=== PATIENT | male | born 1985 | race Caucasian/White ===

== ENCOUNTER 2020-12-15 21:49 | Inpatient (IN) | payer SELFPAY ==
[2020-12-15 21:50] VITALS: BP 127/90; PULSE 95; RESP 18; TEMP 36.7; O2SAT 98; BMI 39.7
--- NOTE | 2020-12-15 21:51 | ECG_ITS ---
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 Measurements Intervals [place] Rate: 80 P: 42 CO: 174 QRS: 12 QRSD: 91 T: 34 QT: 352 QTc: 406 Interpretive Statements SINUS RHYTHM MINIMAL VOLTAGE CRITERIA FOR LVH, CONSIDER NORMAL VARIANT [MEETS CRITERIA IN ONE OF: R(aVL), S(V1), R(V5), R(V5/V6)+S(V1)] No previous ECG available for comparison Electronically Signed On 12-16-2020 12:40:25 FAST FOOD SHIFT SUPERVISOR by Beth Gresham M.D. [id number]
[2020-12-15 22:26] LABS: Add Urine Microscopic? NO
[2020-12-15 22:26] LABS: Basophils % 0.4 %; Eosinophils # 0.3 10^3/uL (0.0-0.8); Eosinophils % 3.3 %; Hematocrit 50.1 % (42.0-52.0); Lymphocytes # 2.2 10^3/uL (0.8-4.8); Lymphocytes % 23.1 %; Mean Corpuscular HGB Conc 33.9 g/dL (30.0-36.0); Mean Corpuscular Hemoglobin 31.5 pg (28.0-34.0); Mean Corpuscular Volume 92.8 fL (80-94); Mean Platelet Volume 10.6 fL (7.4-10.4); Monocytes # 0.5 10^3/uL (0.2-0.9); Monocytes % 4.9 %; Neutrophils # 6.46 10^3/uL (1.8-7.7); Neutrophils % 68.1 %; Nucleated Red Blood Cells % 0 %; Platelet Count 221 10^3/cmm (130-400); Red Cell Distribution Width 12.2 % (12.1-15.1); White Blood Count 9.5 10^3/uL (4.0-10.0)
[2020-12-15 22:35] LABS: Urine Appearance Clear (CLEAR); Urine Color Yellow (Yellow); pH Urine 5 (5-7)
[2020-12-15 22:36] LABS: Bilirubin Urine Neg (Negative); Blood Urine Neg (Negative); Glucose Urine UA 4+ (Normal); Ketones Urine 1+ (Negative); Leukocyte Esterase Urine Negative (Negative); Nitrate Urine Negative (Negative); Protein Urine Neg (Negative); Specific Gravity, Urine 1.025 (1.005-1.030); Urobilinogen Urine 1 mg/dL (Negative)
[2020-12-15 22:39] LABS: Amphetamines Screen Urine Negative (Negative); Barbiturates Screen Urine Negative (Negative); Benzodiazepines Screen Urine Negative (Negative); Cocaine Screen Urine Negative (Negative); Opiate Screen Urine Negative (Negative); PCP Screen Urine Negative (Negative); THC Screen Urine Negative (Negative)
[2020-12-15 22:54] LABS: Alanine Aminotransferase 107 U/L (0-41); Albumin Level 4.6 g/dL (3.5-5.2); Alkaline Phosphatase 120 IU/L (40-130); Anion Gap 13.9 (5-19); Aspartate Amino Transferase 53 U/L (0-40); Blood Urea Nitrogen 10 mg/dL (6-20); Calcium 9.2 mg/dL (8.5-10.5); Carbon Dioxide 27 mmol/L (22-29); Chloride 98 mmol/L (98-107); Globulin 3.9 g/dL (1.3-4.6); Glucose 279 mg/dL (65-115); Osmolality Calculated 289 mOsm/kg (285-295); Potassium 3.9 mmol/L (3.5-5.1); Sodium 135 mmol/L (136-145); Thyroid Stimulating Hormone 1.04 uIU/mL (0.27-4.20); Total Bilirubin 0.8 mg/dL (0.15-1.2); Total Protein 8.5 g/dL (6.6-8.7)
[2020-12-15 23:06] LABS: Acetaminophen < 5.0 ug/mL (10-30); Salicylate < 0.3 mg/dL (3-10)
[2020-12-15 23:07] LABS: Alcohol Level < 10 mg/dL (0-10)
--- NOTE | 2020-12-15 23:13 | ED_ITS ---
HPI - Psych General: Chief Complaint: Psychiatric Symptoms Stated Complaint: SI Time Seen by Provider: 12/15/20 21:50 History of Present Illness: HPI Narrative: Patient comes to the ER after a suicide attempt where he says he was trying to kill himself. 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 It is very superficial and does not require repair. No history of depression. He says his just told him that she wants a divorce and he is upset about it. MD complaint: suicidal ideation and feels depressed Associated symptoms: Deny depression Review of Systems General: Reports: 10 or more systems reviewed and unremarkable except in HPI and below Const: Denies: fatigue Eyes: Denies: change in vision, blurry vision or eye redness ENMT: Denies: throat pain, swelling of lips/tongue, ear or mastoid pain or nasal congestion Card: Denies: chest pain, palpitations, irregular heart rhythm, edema, dyspnea on exertion or orthopnea Resp: Denies: dyspnea, productive cough or non-productive cough GI: Denies: abdominal pain, diarrhea or GI cramping : Denies: flank pain, urinary frequency or urinary urgency Musc: Denies: neck pain, back pain, extremity pain, joint pain, joint redness, limited range of motion or muscle weakness Skin/Breast: Reports: other (Laceration); Denies: rash, pruritus, erythema, skin pain or skin tenderness Neuro: Denies: headache(s), numbness in extremities, weakness in extremities, sensory changes, difficulty walking, dizziness, confusion or Slurred speech present Psych: Denies: anxiety or depression Endo: Denies: polyuria All/Imm: Denies: urticaria, throat swelling or tongue swelling PFSH ED PFSH: Social History (Updated 04/11/20 @ 11:05 by Janna Bonilla LPN) Smoking and tobacco status: never smoked Physical Exam Const: COMMON NORMALS: no acute distress, average body habitus, patient oriented x3, no limitations, healthy appearing, alert and well nourished GENERAL APPEARANCE: cooperative, comfortable, well kempt and well developed ORIENTATION/CONSCIOUSNESS: Yes awake, Yes oriented to person, Yes oriented to place and Yes oriented to time HENMT: COMMON NORMALS: normocephalic, external ears normal and Normal external nose present HEAD & SCALP: normal to inspection and normocephalic NOSE: Normal external nose present EXTERNAL EAR: Yes external ears normal MOUTH: Normal oral and palatal mucosa present THROAT: posterior oropharynx normal Eye: COMMON NORMALS: Equal, round and reactive pupils present and EOMs intact bilaterally GENERAL EYE: appearance normal, both eyes and all related structures PUPIL: Yes Equal, round and reactive pupils present Neck/C-Spine: COMMON NORMALS: full ROM, no lymphadenopathy, no meningeal signs and no JVD GENERAL: Yes normal visual inspection Lymph: LYMPHATIC: no lymphadenopathy noted Chest: COMMONS NORMALS: normal inspection of the chest and normal palpation of entire chest wall Resp: COMMON NORMALS: normal respiratory effort, No retractions, No use of accessory muscles, clear to auscultation bilaterally and percussion normal EFFORT & INSPECTION: Yes able to speak in complete sentences AUSCULTATION: clear to auscultation bilaterally PERCUSSION: percussion normal Cardio: COMMON NORMALS: no JVD, regular rate, regular rhythm, S1 normal heart sound present, S2 normal heart sound present and Peripheral pulses 2+ throughout RATE: regular rate RHYTHM: regular rhythm HEART SOUNDS: S1 normal heart sound present and S2 normal heart sound present PERIPHERAL PULSES: Peripheral pulses 2+ throughout GI: COMMON NORMALS: Normal to inspection, nondistended, normoactive bowel sounds present, Soft to palpation, non-tender and no masses INSPECTION: Yes normal to inspection PALPATION: Yes Soft to palpation : COMMON NORMALS: Yes no CVA tenderness BLADDER/KIDNEY EXAM: Yes no CVA tenderness Back/Pelvis: COMMON NORMALS: no CVA tenderness, thoracic and lumbar spine normal to inspection, no thoracic nor lumbar tenderness and thoraco-lumbar ROM normal Extremity: COMMON NORMALS: normal to inspection, full ROM, capillary refill normal, no joint enlargement and no pedal edema GENERAL: Yes normal exam except as noted Neuro: COMMON NORMALS: patient oriented x3, CN's II-XII intact bilaterally, moves all extremities, no focal motor deficits, no sensory deficits noted and gait normal SENSORIUM/ORIENTATION: Yes alert, Yes oriented to person, Yes oriented to place and Yes oriented to time MENINGEAL SIGNS: Yes no meningeal signs Psych: COMMON NORMALS: mental status grossly normal, Normal thought process present, cooperative, normal affect and speech normal APPEARANCE: Yes well kempt ATTITUDE: Yes calm SPEECH: Yes normal speech THOUGHT PROCESS: Normal thought process present Skin: COMMON NORMALS: no rashes or lesions noted NARRATIVE SKIN EXAM: Normal except very superficial laceration to left forearm several centimeters long and linear with the length of the arm. Does not separate and does not require repair. GENERAL SKIN EXAM: no rashes or lesions noted MDM - Psych MDM Narrative: Medical decision making narrative: Updated tetanus. Discussed with Dr. Thacker who accepts for admission Lab Data: Labs: Lab Results 12/15/20 12/15/20 12/15/20 Range/Units 22:13 22:13 22:16 WBC 9.5 (4.0-10.0) 10^3/ uL RBC 5.40 H (4.1-5.3) 10^6/u L Hgb 17.0 H (11.7-16.6) g/dL Hct 50.1 (42.0-52.0) % MCV 92.8 (80-94) fL MCH 31.5 (28.0-34.0) pg MCHC 33.9 (30.0-36.0) g/dL RDW 12.2 (12.1-15.1) % Plt Count 221 (130-400) 10^3/c mm MPV 10.6 H (7.4-10.4) fL Neut % (Auto) 68.1 % Lymph % (Auto) 23.1 % [place] % (Auto) 4.9 % Eos % (Auto) 3.3 % Baso % (Auto) 0.4 % Neut # (Auto) 6.46 (1.8-7.7) 10^3/u L Lymph # (Auto) 2.2 (0.8-4.8) 10^3/u L [place] # (Auto) 0.5 (0.2-0.9) 10^3/u L Eos # (Auto) 0.3 (0.0-0.8) 10^3/u L Baso # (Auto) 0.0 (0.0-0.1) 10^3/u L Nucleated RBC % (a uto) 0 % Nucleated RBCs # 0.0 /100WBC Sodium (136-145) mmol/L Potassium (3.5-5.1) mmol/L Chloride (98-107) mmol/L Carbon Dioxide (22-29) mmol/L Anion Gap (5-19) BUN (6-20) mg/dL Creatinine (0.7-1.2) mg/dL GFR Calculation (90-130) mL/min Glucose (65-115) mg/dL Calculated Osmolal ity (285-295) mOsm/k g Calcium (8.5-10.5) mg/dL Total Bilirubin (0.15-1.2) mg/dL AST (0-40) U/L ALT (0-41) U/L Alkaline Phosphata se (40-130) IU/L Total Protein (6.6-8.7) g/dL Albumin (3.5-5.2) g/dL Globulin (1.3-4.6) g/dL TSH (0.27-4.20) uIU/ mL Urine Color Yellow (Yellow) Urine Appearance Clear (CLEAR) Urine pH 5 (5-7) Ur Specific Gravit y 1.025 (1.005-1.030) Urine Protein Neg (Negative) Urine Glucose (UA) 4+ H (Normal) Urine Ketones 1+ H (Negative) Urine Blood Neg (Negative) Urine Nitrate Negative (Negative) Urine Bilirubin Neg (Negative) Urine Urobilinogen 1 H (Negative) mg/dL Ur Leukocyte Sherice ase Negative (Negative) Salicylates (3-10) mg/dL Urine Opiates Scre en Negative (Negative) ng/mL Acetaminophen (10-30) ug/mL Ur Barbiturates Sc reen Negative (Negative) ng/mL Ur Phencyclidine S crn Negative (Negative) ng/mL Ur Amphetamines Sc reen Negative (Negative) ng/mL U Benzodiazepines Scrn Negative (Negative) ng/mL Urine Cocaine Scre en Negative (Negative) ng/mL U Marijuana (THC) Screen Negative (Negative) ng/mL Ethyl Alcohol (0-10) mg/dL 12/15/20 Range/Units 22:16 WBC (4.0-10.0) 10^3/ uL RBC (4.1-5.3) 10^6/u L Hgb (11.7-16.6) g/dL Hct (42.0-52.0) % MCV (80-94) fL MCH (28.0-34.0) pg MCHC (30.0-36.0) g/dL RDW (12.1-15.1) % Plt Count (130-400) 10^3/c mm MPV (7.4-10.4) fL Neut % (Auto) % Lymph % (Auto) % [place] % (Auto) % Eos % (Auto) % Baso % (Auto) % Neut # (Auto) (1.8-7.7) 10^3/u L Lymph # (Auto) (0.8-4.8) 10^3/u L [place] # (Auto) (0.2-0.9) 10^3/u L Eos # (Auto) (0.0-0.8) 10^3/u L Baso # (Auto) (0.0-0.1) 10^3/u L Nucleated RBC % (a uto) % Nucleated RBCs # /100WBC Sodium 135 L (136-145) mmol/L Potassium 3.9 (3.5-5.1) mmol/L Chloride 98 (98-107) mmol/L Carbon Dioxide 27 (22-29) mmol/L Anion Gap 13.9 (5-19) BUN 10 (6-20) mg/dL Creatinine 0.8 (0.7-1.2) mg/dL GFR Calculation 110.0 (90-130) mL/min Glucose 279 H (65-115) mg/dL Calculated Osmolal ity 289 (285-295) mOsm/k g Calcium 9.2 (8.5-10.5) mg/dL Total Bilirubin 0.8 (0.15-1.2) mg/dL AST 53 H (0-40) U/L ALT 107 H (0-41) U/L Alkaline Phosphata se 120 (40-130) IU/L Total Protein 8.5 (6.6-8.7) g/dL Albumin 4.6 (3.5-5.2) g/dL Globulin 3.9 (1.3-4.6) g/dL TSH 1.04 (0.27-4.20) uIU/ mL Urine Color (Yellow) Urine Appearance (CLEAR) Urine pH (5-7) Ur Specific Gravit y (1.005-1.030) Urine Protein (Negative) Urine Glucose (UA) (Normal) Urine Ketones (Negative) Urine Blood (Negative) Urine Nitrate (Negative) Urine Bilirubin (Negative) Urine Urobilinogen (Negative) mg/dL Ur Leukocyte Sherice ase (Negative) Salicylates < 0.3 L (3-10) mg/dL Urine Opiates Scre en (Negative) ng/mL Acetaminophen < 5.0 L (10-30) ug/mL Ur Barbiturates Sc reen (Negative) ng/mL Ur Phencyclidine S crn (Negative) ng/mL Ur Amphetamines Sc reen (Negative) ng/mL U Benzodiazepines Scrn (Negative) ng/mL Urine Cocaine Scre en (Negative) ng/mL U Marijuana (THC) Screen (Negative) ng/mL Ethyl Alcohol < 10 (0-10) mg/dL Discharge Plan Discharge Patient Disposition: Admitted As Inpatient Clinical Impression: Depression Condition: Stable Coding Level of Care Code ED Drop Hammer Mechanic for Juanita Juares
[2020-12-16] VITALS (9 sets, daily range): BP systolic 110–129; BP diastolic 73–88; PULSE 68–87; RESP 15–20; TEMP 36.4–37.3; O2SAT 95–98
[2020-12-16 00:25] LABS: Hepatitis A Antibody IgM Non-Reactive (Nonreactive); Hepatitis B Core IgM Non-Reactive (Nonreactive); Hepatitis B Surface Antigen Non-Reactive (Nonreactive); Hepatitis C Virus Antibody Non-Reactive (Nonreactive)
--- NOTE | 2020-12-16 13:32 | P.HP_ITS ---
Providers/Chief Complaint Admitting Physician: Arcelia Thacker DO Primary Care Provider: CARMEN Reed Chief Complaint: SI HPI NPU History of Present Illness Praveen Boykin is a 35 year old male with no past psychiatric history presented to the emergency department superficial laceration to his left forearm in the context of his telling him that she wanted to divorce. Emergency department episode of care yielded unremarkable work-up and states that patient reported intent of ending his life with his superficial laceration that did not require any repair although patient currently states that he had no intent of ending his life when he created the superficial laceration to his left forearm when he became upset. Patient denies any sustained low mood states her depressive symptoms prior to this acute stressor. Patient denies any past his tory of major depressive episodes or any sustained mood states or past treatment for depressive symptoms. Patient denies any history of suicide attempts or self-harm behavior. Patient does report having an issue with anger stating that he has a low threshold for frustration tolerance but denies any past or recent episodes of harming any other individuals and denies any history of assaultive behavior. Patient was unable to report any recent reason for his wanting to leave him though he states that they occasionally get into verbal arguments but no physical altercations and denies any history of domestic violence. He denies any past or recent manic or hypomanic episodes. He denies any sustained excessive worry or difficulty controlling worrying and denies any past or recent episodes of panic symptoms. Psychiatric review of systems is otherwise negative. Patient denies any past treatment for psychiatric symptoms and denies any past history of counseling or therapy. Patient was living with his and reports having a support system locally stating that many of his family members live nearby and reports having a good support system. He reports currently being enrolled in [employer] with an anticipated graduation date of next fall. Review of Systems General: Reports: 10 or more systems reviewed and unremarkable except in HPI and below Meds NPU Home Medications Medication Instructions Recorded Confirmed Last Taken Type No Known Home Medications 04/11/20 12/16/20 Unknown History Allergies Allergy/AdvReac Type Severity Reaction Status Date / Time No Known Allergies Allergy Verified 04/11/20 10:59 PFSH NPU PFSH: Social History Smoking and tobacco status: never smoked Other Psychiatric History: Other Psychiatric History: Denies any past psychiatric treatment Denies any history of psychiatric hospitalization Denies any history of self-harm behavior or suicide attempts Mental Status Exam MSE Comments: Sitting up on his bed, bearded, dejected looking, appropriately groomed and dressed, calm, quiet, cooperative, good eye contact Psychomotor activity is decreased, no agitation Speech is low volume, normal rate, spontaneous, clear articulation, not pressured I feel depressed, congruent affect, constricted, not labile Alert and oriented to person, place, time, situation Memory and concentration appear to be intact per interview Intellectual functioning appears to be average based on the Keppra, interview Thought process, linear, no flight of ideas, no looseness of associations Thought content, no delusions, no hallucinations, no suicidal or homicidal ideation Insight and judgment appear to be intact Vitals/I&O/Wt Last Vital Signs Temp 99.2 F 12/16/20 06:00 Pulse 68 12/16/20 06:00 Resp 15 12/16/20 06:00 BP 115/74 12/16/20 06:00 Pulse Ox 97 12/16/20 06:00 Weight last 48 hrs Weight 129.274 kg Data NPU : 12/15/20 22:16 12/15/20 22:16 A&P Assessment and plan (1) Adjustment disorder with mixed disturbance of emotions and conduct: Status: Acute Additional A&P Information 35-year-old male with no past psychiatric history with superficial laceration of left forearm not requiring any repair as a suicidal gesture after his told him that she wanted to divorce. Patient denies any recent depressive symptoms prior to this event and continues to report depressive symptoms in the context of the acute stressor. Would likely benefit from observation for return of any suicidal ideation or behaviors while coordinating for safe discharge. VOLUNTARY ADMIT to inpatient psychiatry Will hold on starting any antidepressant while continuing to evaluate for any sustained depressive symptoms Supportive therapy Coordinate with aids social worker for post discharge counseling/therapy targeting development of adaptive coping strategies in the context of his ongoing acute stressor Involuntary Hold Information 96 Hour Hold: 96 Hour Involuntary Admission: No Attestations NPU Medical Necessity Statement*: Patient requires psychiatric hospitalization for observation given recent suicidal gesture for any ongoing suicidal ideation or behaviors as well as coordination for safe discharge Anticipate hospital stay to exceed 2 midnights Time Spent in Patient Care: Greater than 35 minutes (>than 50% of time spent in counselling and/or direct pt care on unit) . Coding Level of Care Code Acute Manager Of Employee Relations for Chg Fwd Diagnoses Adjustment disorder with mixed disturbance of emotions and conduct F43.25
[2020-12-16] MEDS: acetaminophen 325 mg Tablet 650 MG PO (20:38)
[2020-12-17 06:00] VITALS: BP 105/66; PULSE 72; RESP 18; TEMP 36.8; O2SAT 93
--- NOTE | 2020-12-17 09:48 | P.DS_ITS ---
Diagnoses at Discharge Discharge Diagnosis (1) Adjustment disorder with mixed disturbance of emotions and conduct: Status: Acute Reason for Visit Reason for Visit: SI Hospital Course Hospital Course 35 year old male with no past psychiatric history presented to the emergency department superficial laceration to his left forearm in the context of his telling him that she wanted to divorce. Patient superficial laceration did not require repair, patient states that he had never harmed himself before and had never attempted suicide and denied that this superficial laceration represented a suicide attempt. Patient reported that he was overcome with emotions after his had told him that she wanted a divorce. He denies any recent or current major depressive episodes and had never been treated for depressive symptoms previously and has no family history of depression or anxiety. Patient quickly reconstituted while on the unit and denied any suicidal ideation throughout his hospital stay. Patient communicated his understanding of the need to develop more adaptive coping strategies in the need to utilize resources provided by the social service technician for counseling/therapy. Patient was not suicidal at the time of discharge and did not appear to pose an imminent threat of harm to self or others. Low to moderate risk of harm to self or others given no current suicidal ideation and no current psychiatric symptoms although patient's risk may be elevated if he continues to exercise maladaptive coping strategies or uses alcohol or substances which may lead to unexpected, impulsive behavior. Risk mitigation included psychiatric hospitalization for observation for any ongoing suicidal ideation or suicidal behavior as well as assessing for the need of any psychiatric medication as well as coordinating for safe discharge to include providing resources for counseling/therapy. Patient was able to communicate his understanding of the need to utilize more adaptive coping strategies to include follow-up with a counselor/therapist in order to further mitigate his risk of harm to self and others. Involuntary Hold Information 96 Hour Hold: 96 Hour Involuntary Admission: No Mental Status Exam MSE Comments: Sitting in the day room, watching TV, calm, cooperative, good eye contact Psychomotor activity is neither increased nor decreased, no agitation Speech is normal volume, normal rate, spontaneous, clear articulation, not pressured I feel better, full range of affect, smiles appropriately at times during interview, not labile Alert and oriented to person, place, time, situation Memory and concentration appear to be intact per interview Intellectual functioning appears to be average based on his vocabulary, interview Thought process, linear, no flight of ideas, no looseness of associations Thought content, no delusions, no hallucinations, no suicidal or homicidal ideation Insight and judgment appear to be intact Discharge Data Vitals: Last Vital Signs Temp 98.3 F 12/17/20 06:00 Pulse 72 12/17/20 06:00 Resp 18 12/17/20 06:00 BP 105/66 12/17/20 06:00 Pulse Ox 93 12/17/20 06:00 Discharge Plan Discharge Patient Disposition: Home Condition: Stable Prescriptions: No Action No Known Home Medications RF: 0 Discharge Orders: Discharge Order (Routine); Ordered 12/17/20 Ordered By: Arcelia Thacker Referrals: [facility] [Outside] (Intake paperwork was completed while you were in the hospital. They will call and schedule you for an initial assessment.) Syed,CARMEN Frye [Primary Care Provider] - Discharge Diet: Regular Discharge Activity: Resume usual activity Discharge Attestations NPU Time Spent in Discharge Care*: greater than 30 min Status at Discharge: Cognitive status at discharge: cognitively intact , Behavioral status at discharge: cooperative , Functional status at discharge: independent ambulation Overall status at discharge: patient is back to baseline Coding Level of Care Code Acute Dance Professor for Chg Fwd Diagnoses Adjustment disorder with mixed disturbance of emotions and conduct F43.25
[2020-12-17 09:53] VITALS: BP 105/66; PULSE 72; RESP 18; TEMP 36.8; O2SAT 93
== END 2020-12-17 10:41 | disposition home or self-care (01) | DRG 882 ==
LOC: ER 23:15 → NP 12-16 00:07
PROVIDERS: Admitting Provider Psychiatry & Neurology Psychiatry; Emergency Provider Family Medicine; PCP Nurse Practitioner Family; Visit Provider Psychiatry & Neurology Psychiatry
DX: F43.25 Adjustment disorder with mixed disturbance of emotions and conduct (principal)
CPT/HCPCS: 80053; 80074; 80306; 80307; 81003; 84443; 85025; 93005; 99285

== ENCOUNTER 2023-03-19 11:08 | Outpatient (CLI) | payer OTHER, SELFPAY ==
--- NOTE | 2023-03-19 11:59 | XR_ITS ---
WS: [id number] Right knee, AP and lateral views, 03/19/2023 Clinical Data: RIGHT KNEE PAIN Comparison: None. Findings: No fractures or dislocations are seen. The joint spaces are normal. The patella is intact. The soft t issues are unremarkable. XR/XR knee RT 1-2V [id number] Impression: Negative right knee. Kellgren-Alexy Classification: grade 0 (none): definite absence of x-ray loren nges of osteoarthritis
== END 2023-03-19 11:09 | disposition home or self-care (01) ==
PROVIDERS: PCP Nurse Practitioner Family; Visit Provider Nurse Practitioner Family
DX: M25.561 Pain in right knee (principal)
CPT/HCPCS: 73560

== ENCOUNTER 2023-11-21 15:03 | Emergency (ER) | payer OTHER, SELFPAY ==
[2023-11-21 15:09] VITALS: BP 156/83; PULSE 89; RESP 16; TEMP 36.6; O2SAT 99; BMI 34.5
[2023-11-21 15:23] LABS: Glucose Point of Care 468 mg/dL (70-110)
--- NOTE | 2023-11-21 15:25 | ED_ITS ---
HPI - Recheck/Abnormal Lab/Rx 2 General: Chief Complaint: Recheck/Abnormal Lab/Rx Stated Complaint: sent over by dr high blood sugar Time Seen by Provider: 11/21/23 15:23 History of Present Illness: 38-year-old male patient comes in today after having a elevated blood glucose at urgent care. Patient was being seen for a recurrent balanitis. Patient appears nontoxic. On exam it was noted that patient's blood glucose was greater than 400. Dr. Melgoza recommended patient come to the ER for further evaluation and treatment. Patient appears nontoxic. Patient has reported some weight loss over the last year. Patient appears in no pain. Review of Systems 2 General: Reports: 10 or more systems reviewed and unremarkable except in HPI and below Const: Denies: fever(s) Card: Denies: chest pain Resp: Denies: dyspnea GI: Denies: nausea, vomiting, diarrhea or constipation : Denies: difficulty urinating Musc: Denies: neck pain or back pain Skin/Breast: Reports: rash PFSH ED 2 PFSH: Family History Father Hypertension Mother No problems noted. Social History Smoking and tobacco/nicotine status: never used tobacco/nicotine Physical Exam 2 Const: COMMON NORMALS: alert HENMT: COMMON NORMALS: normocephalic HEAD & SCALP: normocephalic Neck/C-Spine: COMMON NORMALS: full ROM Resp: COMMON NORMALS: normal respiratory effort and clear to auscultation bilaterally AUSCULTATION: clear to auscultation bilaterally Cardio: COMMON NORMALS: regular rate and regular rhythm RATE: regular rate RHYTHM: regular rhythm GI: COMMON NORMALS: Soft to palpation and non-tender PALPATION: Yes Soft to palpation Back/Pelvis: COMMON NORMALS: thoracic and lumbar spine normal to inspection Extremity: COMMON NORMALS: normal to inspection Neuro: SENSORIUM/ORIENTATION: Yes alert Skin: COMMON NORMALS: turgor normal GENERAL SKIN EXAM: turgor normal Course 2 Vital Signs: Vital signs: Vital Signs Temperature 97.8 F 11/21/23 15:09 Pulse Rate 87 11/21/23 16:22 Respiratory Rate 15 11/21/23 16:22 Blood Pressure 153/86 11/21/23 16:22 Pulse Oximetry 100 11/21/23 16:22 Oxygen Delivery Me thod Room Air 11/21/23 16:22 MDM - Recheck/Abnormal Lab/Rx Medical Decision Making 38-year-old male patient comes in today for complaints of elevated blood glucose. It was noted patient had a high glucose when he was being evaluated for balanitis at urgent care clinic on exam respirations are even lungs are clear to auscultation. Abdomen soft nontender. Skin is warm and dry. Vital signs are stable. Differential diagnosis includes but not limited to diabetic ketoacidosis, hyperglycemia secondary to diabetes mellitus, uncontrolled diabetes mellitus, hypokalemia, hyponatremia. Review of the record noted that since patient has had 2 sets of labs that showed a blood glucose of 171 and 268. Believe the patient is had untreated diabetes mellitus type 2 for several years. We will start patient on metformin and he has an appointment to follow- up with her primary care provider on Wednesday. Patient was given IV fluids and 1 dose of insulin at 10 units. With improvement of glucose to less t0 322. Patient reports understanding of care plan and need for follow-up or return to the ER. Lab Data 11/21/23 15:22 11/21/23 15:22 Laboratory Results WBC 7.54 10^3/uL (3.29-11.43) 11/21/23 15:22 RBC 4.99 10^6/uL (3.85-5.65) 11/21/23 15:22 Hgb 15.80 g/dL (11.27-16.99) 11/21/23 15:22 Hct 43.9 % (37-53) 11/21/23 15:22 MCV 88.0 fl (82-101) 11/21/23 15:22 MCH 31.7 pg (27-33) 11/21/23 15:22 MCHC 36.0 g/dL (30-55) 11/21/23 15:22 RDW 12.3 % (12.1-15.1) 11/21/23 15:22 Plt Count 189 10^3/cmm (157-399) 11/21/23 15:22 MPV 10.5 fL (7.4-10.4) H 11/21/23 15:22 Neut % (Auto) 66.2 % 11/21/23 15:22 Lymph % (Auto) 24.7 % 11/21/23 15:22 [place] % (Auto) 5.6 % 11/21/23 15:22 Eos % (Auto) 2.8 % 11/21/23 15:22 Baso % (Auto) 0.3 % 11/21/23 15:22 Neut # (Auto) 5.00 10^3/uL (1.8-7.7) 11/21/23 15:22 Lymph # (Auto) 1.9 10^3/uL (0.8-4.8) 11/21/23 15:22 [place] # (Auto) 0.4 10^3/uL (0.2-0.9) 11/21/23 15:22 Eos # (Auto) 0.2 10^3/uL (0.0-0.8) 11/21/23 15:22 Baso # (Auto) 0.0 10^3/uL (0.0-0.1) 11/21/23 15: Nucleated RBC % (auto) 0 % 11/21/23 15: Nucleated RBCs # 0.0 /100WBC 11/21/23 15:22 Specimen Type Arterial 11/21/23 15:29 Sample Site Radial, right 11/21/23 15:29 ABG pH 7.40 (7.35-7.45) 11/21/23 15:29 ABG pCO2 41.2 mmHg (35-45) 11/21/23 15:29 ABG pO2 72.4 mmHg (80.0-100.0) L 11/21/23 15:29 ABG PO2/FiO2 Ratio 0 11/21/23 15:29 ABG HCO3 25.7 mmol/L (22-26) 11/21/23 15:29 ABG Base Excess 0.8 mmol/L (-2.0-2.0) 11/21/23 15:29 Ke[place]an Test Pos 11/21/23 15:29 Hematocrit 47.5 % (42-52) 11/21/23 15:29 O2 Delivery Device Room air 11/21/23 15:29 FiO2 21.0 % 11/21/23 15:[address] Operator ID Cak 11/21/23 15:29 Sodium 133 mmol/L (136-145) L 11/21/23 15:22 Potassium 3.7 mmol/L (3.5-5.1) 11/21/23 15:22 Chloride 98 mmol/L (98-107) 11/21/23 15:22 Carbon Dioxide 25 mmol/L (22-29) 11/21/23 15:22 Anion Gap 13.7 (5-19) 11/21/23 15:22 BUN 14 mg/dL (6-20) 11/21/23 15:22 Creatinine 0.8 mg/dL (0.7-1.2) 11/21/23 15:22 GFR Calculation 108.2 mL/min (90-130) 11/21/23 15:22 Glucose 513 mg/dL (65-115) H* 11/21/23 15:22 POC Glucose 332 mg/dL (70-110) H 11/21/23 17:22 Calculated Osmolality 300 mOsm/kg (285-295) H 11/21/23 15:22 Calcium 9.5 mg/dL (8.5-10.5) 11/21/23 15:22 Total Bilirubin 0.7 mg/dL (0.15-1.2) 11/21/23 15:22 AST 18 U/L (0-40) 11/21/23 15:22 ALT 27 U/L (0-41) 11/21/23 15:22 Alkaline Phosphatase 119 U/L (40-130) 11/21/23 15:22 Total Protein 7.5 g/dL (6.6-8.7) 11/21/23 15:22 Albumin 4.2 g/dL (3.5-5.2) 11/21/23 15:22 Globulin 3.3 g/dL (1.3-4.6) 11/21/23 15:22 Urine Color Straw (Yellow) 11/21/23 16:07 Urine Appearance Clear (CLEAR) 11/21/23 16:07 Urine pH 5 (5-7) 11/21/23 16:07 Ur Specific [place] 1.005 (1.005-1.030) 11/21/23 16:07 Urine Protein Neg (Negative) 11/21/23 16:07 Urine Glucose (UA) 4+ (Normal) H 11/21/23 16:07 Urine Ketones 1+ (Negative) H 11/21/23 16:07 Urine Blood Neg (Negative) 11/21/23 16:07 Urine Nitrate Negative (Negative) 11/21/23 16:07 Urine Bilirubin Neg (Negative) 11/21/23 16:07 Urine Urobilinogen Norm mg/dL (Negative) 11/21/23 16:07 Ur Leukocyte Esterase Negative (Negative) 11/21/23 16:07 Serum Ketones Negative (Negative) 11/21/23 15:22 No radiology studies performed this visit Discharge Plan Discharge Patient Disposition: Home Clinical Impression: Candidal balanitis Diabetes mellitus Qualifiers: Diabetes mellitus type: type 2 Diabetes mellitus retirement insulin use: without lobsterman use Diabetes mellitus complication status: with skin complications D iabetes mellitus complication detail: with dermatitis Qualified Code(s): E11.620 - Type 2 diabetes mellitus with diabetic dermatitis Condition: Stable Prescriptions: New metformin 500 mg tablet extended release 24 hr 500 mg PO BID Qty: 60 0RF No Action fluconazole 150 mg tablet 150 mg PO .weekly 56 Days Qty: 8 0RF miconazole nitrate 2 % cream 1 applic topical TID Qty: 28.4 2RF Discharge Orders: Discharge ED (Routine); Ordered 11/21/23 Ordered By: Long Muñoz Referrals: Melva Lynch FNP [Primary Care Provider] - Discharge Diet: Usual diet Discharge Activity: Increase activity as tolerated Patient Instructions: Diabetes and Diet, Type 2 Diabetes in Adults: New Diagnosis (DC) Activity Restrictions/Additional Instructions: Follow-up with PCP as scheduled appointment on Wednesday. Return to ED for new concerns. Coding Level of Care Code ED Gathering Worker for Juanita Juares
[2023-11-21] MEDS: sodium chloride 0.9% 1,000 ML 999 ML IV (15:40)
[2023-11-21 15:41] LABS: Blood Gas Allen Test Pos; Blood Gas Operator Identificat CAK; Blood Gas Sample Type Arterial; Oxygen Device ROOM AIR; PO2 FiO2 Ratio Arterial Blood 0
[2023-11-21 15:42] LABS: Basophils % 0.3 %; Eosinophils # 0.2 10^3/uL (0.0-0.8); Eosinophils % 2.8 %; Hematocrit 43.9 % (37-53); Lymphocytes # 1.9 10^3/uL (0.8-4.8); Lymphocytes % 24.7 %; Mean Corpuscular Hemoglobin 31.7 pg (27-33); Mean Platelet Volume 10.5 fL (7.4-10.4); Monocytes # 0.4 10^3/uL (0.2-0.9); Monocytes % 5.6 %; Neutrophils % 66.2 %; Nucleated Red Blood Cells % 0 %; Platelet Count 189 10^3/cmm (157-399); Red Blood Count 4.99 10^6/uL (3.85-5.65); Red Cell Distribution Width 12.3 % (12.1-15.1); White Blood Count 7.54 10^3/uL (3.29-11.43)
[2023-11-21 15:52] LABS: ABG PCO2 41.2 mmHg (35-45); Arterial Blood Gas Hematocrit 47.5 % (42-52); Base Excess ABG 0.8 mmol/L (-2.0-2.0); Blood Gas Sample Site Radial, right; HCO3 ABG 25.7 mmol/L (22-26); PO2 ABG 72.4 mmHg (80.0-100.0)
[2023-11-21 15:58] LABS: Alanine Aminotransferase 27 U/L (0-41); Albumin Level 4.2 g/dL (3.5-5.2); Alkaline Phosphatase 119 U/L (40-130); Anion Gap 13.7 (5-19); Aspartate Amino Transferase 18 U/L (0-40); Blood Urea Nitrogen 14 mg/dL (6-20); Calcium 9.5 mg/dL (8.5-10.5); Carbon Dioxide 25 mmol/L (22-29); Chloride 98 mmol/L (98-107); Globulin 3.3 g/dL (1.3-4.6); Glomerular Filtration Rate 108.2 mL/min (90-130); Osmolality Calculated 300 mOsm/kg (285-295); Potassium 3.7 mmol/L (3.5-5.1); Sodium 133 mmol/L (136-145); Total Bilirubin 0.7 mg/dL (0.15-1.2); Total Protein 7.5 g/dL (6.6-8.7)
[2023-11-21 16:05] LABS: Glucose 513 mg/dL (65-115); Ketone (Acetest) Serum Negative (Negative)
[2023-11-21 16:15] LABS: Add Urine Microscopic? NO; Charge for UA Resulting for Rev
[2023-11-21] MEDS: insulin regular-human 100 units/1 mL 10 UNIT IVP (16:21)
[2023-11-21 16:22] VITALS: BP 153/86; PULSE 87; RESP 15; O2SAT 100
[2023-11-21 16:24] LABS: Glucose Point of Care 472 mg/dL (70-110)
[2023-11-21 16:26] LABS: Urine Appearance Clear (CLEAR); Urine Color Straw (Yellow); pH Urine 5 (5-7)
[2023-11-21 16:27] LABS: Bilirubin Urine Neg (Negative); Blood Urine Neg (Negative); Glucose Urine UA 4+ (Normal); Ketones Urine 1+ (Negative); Leukocyte Esterase Urine Negative (Negative); Nitrate Urine Negative (Negative); Protein Urine Neg (Negative); Specific Gravity, Urine 1.005 (1.005-1.030); Urobilinogen Urine Norm (Negative)
[2023-11-21 17:26] LABS: Glucose Point of Care 332 mg/dL (70-110)
== END 2023-11-21 17:57 | disposition home or self-care (01) ==
PROVIDERS: Emergency Provider Nurse Practitioner Family; PCP Nurse Practitioner Family
DX: E11.620 Type 2 diabetes mellitus with diabetic dermatitis (principal); B37.42 Candidal balanitis
CPT/HCPCS: 36416; 36600; 80053; 81000; 81003; 82009; 82803; 82962; 85025; 87086; 87491; 87591; 96361; 96374; 99284; J1815; J7030

== ENCOUNTER → 2023-11-26 15:16 | Outpatient (BNVA) | payer OTHER, SELFPAY | PROVIDERS: PCP Nurse Practitioner Family; Visit Provider Family Medicine | DX: E11.620 Type 2 diabetes mellitus with diabetic dermatitis (principal) | CPT/HCPCS: 83036; 84439; 84443 ==

== ENCOUNTER → 2024-04-22 10:14 | Outpatient (BNVA) | payer OTHER, SELFPAY | PROVIDERS: PCP Family Medicine; Visit Provider Family Medicine | DX: E11.620 Type 2 diabetes mellitus with diabetic dermatitis (principal) | CPT/HCPCS: 83036 ==

== ENCOUNTER → 2024-07-21 09:43 | Outpatient (BNVA) | payer OTHER, SELFPAY | PROVIDERS: PCP Family Medicine; Visit Provider Family Medicine | DX: E11.620 Type 2 diabetes mellitus with diabetic dermatitis (principal) | CPT/HCPCS: 83036 ==

== ENCOUNTER → 2024-10-27 15:07 | Outpatient (BNVA) | payer OTHER, SELFPAY | PROVIDERS: PCP Family Medicine; Visit Provider Family Medicine | DX: E11.620 Type 2 diabetes mellitus with diabetic dermatitis (principal) | CPT/HCPCS: 80048; 83036 ==

== ENCOUNTER 2025-01-23 06:00 | Outpatient (RCR) | payer OTHER, SELFPAY | END 2025-02-21 23:59 | disposition home or self-care (01) | LOC: SPT 06:00 | PROVIDERS: Visit Provider Family Medicine | DX: M25.512 Pain in left shoulder (principal) | CPT/HCPCS: 97110; 97161 ==

== ENCOUNTER 2025-02-22 05:00 | Outpatient (RCR) | payer OTHER, SELFPAY | END 2025-03-13 13:15 | disposition home or self-care (01) | LOC: SPT 05:00 | PROVIDERS: PCP Family Medicine; Visit Provider Family Medicine | DX: M25.512 Pain in left shoulder (principal) | CPT/HCPCS: 97110 ==

== ENCOUNTER 2025-10-12 07:33 | Outpatient (RCR) | payer OTHER, SELFPAY | END 2025-10-24 23:59 | disposition home or self-care (01) | LOC: SPT 07:33 | PROVIDERS: Visit Provider Family Medicine | DX: M25.511 Pain in right shoulder (principal); M25.512 Pain in left shoulder | CPT/HCPCS: 97110; 97162; 97530 ==